=== PATIENT | male | born 1945 | race Caucasian/White ===

== ENCOUNTER 2016-12-23 18:58 | Inpatient (IN) ==
--- NOTE | 2016-12-23 19:46 | Diag Imaging Result Doc PS360 ---
EXAM: FLAT/UPRIGHT ABD/1 VIEW CHEST HISTORY: constipation TECHNIQUE: Flat and upright abdomen COMMENT: There are surgical clips in the right upper quadrant. There is gas and air-fluid levels in the colon. There is small bowel dilatation particularly in the left upper quadrant. This is worse than on 12/10/2015. There is no evidence of organomegaly or mass. CHEST: There is bibasilar atelectasis. Otherwise has been no significant change since 11/16/2014. IMPRESSION: Atelectasis. Partial small bowel obstruction. Electronically signed by Terry Wong 12/23/2016 7:43 PM
--- NOTE | 2016-12-23 20:01 | PROVIDER DOCUMENTATION ---
HPI-Abdominal Pain/GI Problem - General Chief Complaint: Constipation Stated Complaint: CONSTIPATED Time Seen by Provider: 12/23/16 19:30 Source: patient Allergies/Adverse Reactions: Patient Allergies Allergy/AdvReac Type Severity Reaction Status Date / Time No Known Allergies Allergy Verified 12/23/16 19:30 Home Medications: Home Medication List Medication Instructions Recorded Confirmed Last Taken Type Hydrochlorothiazide 12.5 mg PO DAILY 11/16/14 12/23/16 08/31/16 History PRAVAstatin [Pravachol] 40 mg PO QHS 11/16/14 12/23/16 08/31/16 History Warfarin [Coumadin] 10 mg PO QHS 11/16/14 12/23/16 08/31/16 History Tamsulosin [Flomax] 0.4 mg PO DAILY 12/10/15 12/23/16 08/31/16 History RAMIpril [Altace] 5 mg PO DAILY 12/26/15 12/23/16 08/31/16 History Warfarin [Coumadin] 11 mg PO QHS 12/26/15 12/23/16 08/29/16 History - History of Present Illness-ABD Nature of Presenting Problems: PT C/O CONSTIPATION AND ABD DISTENTION FOR 3-4 DAYS. STS PAIN HAS GOTTEN WORSE SINCE YESTERDAY. TODAY HE USED 2 FLEETS ENEMAS AND HAS HAD DIARRHEA, BUT NO SOLID STOOL. ALSO HAS N/V TODAY. HX OF DIVERTICULITIS AND MECHANICAL SBO, DISCUSSED SURGERY WITH DR. SOL BUT "ENDED UP NOT HAVING TO HAVE SURGERY". Abdominal Pain Onset Location: reports: LLQ, generalized abdomen Quality of Pain: reports: tightness Severity in ED: reports: moderate Onset/Duration: reports: 4 days ago Timing: reports: still present Associated Symptoms: reports: constipation, nausea, vomiting Last BM: 4 days ago Dark Stools Present?: reports: none noticed Rectal Bleeding: reports: none Rectal Pain: reports: none Emesis Description: reports: clear Bruising or Bleeding Gums?: No Similar Symptoms Previously?: Yes Recently seen or treated by another doctor?: No Review of Systems - Adult - REVIEW OF SYSTEMS - ADULT Constitutional: reports: no symptoms reported. denies: fever Eyes: reports: no symptoms reported Ears, Nose, Mouth & Throat: reports: no symptoms reported Cardiovascular: reports: no symptoms reported. denies: chest pain Respiratory: reports: no symptoms reported. denies: shortness of breath Gastrointestinal: reports: see HPI, abdominal pain, constipation, nausea, poor appetite, vomiting. denies: rectal bleeding Genitourinary: reports: no symptoms reported Musculoskeletal: reports: no symptoms reported Integumentary: reports: no symptoms reported Neurological: reports: no symptoms reported Psychiatric: reports: no symptoms reported Endocrine: reports: no symptoms reported Hematologic/Lymphatic: reports: no symptoms reported Allergic/Immunologic: reports: no symptoms reported All Other Systems: Reviewed and Negative Past History - Adult - PAST MEDICAL HISTORY-ADULT Review of Records: reports: Nursing Assessment Review, Medications Reviewed, Social history reviewed & non-contributory. Major Childhood Illnesses: reports: denies history Cardiovascular: reports: blood clots (dvt), HTN, hyperlipidemia Respiratory: reports: denies history Gastrointestinal: reports: GERD, obstruction Genitourinary: reports: other (BPH) Musculoskeletal: reports: denies history Neurological: reports: denies history Endocrine/Immune: reports: denies history Other Conditions: reports: denies history - PRIOR SURGERIES/PROCEDURES Surgical/Procedure History: reports: cholecystectomy - IMMUNIZATION STATUS Childhood Immunizations: See Nurse Assessment Flu Vaccine: See Nurse Assessment - FAMILY HISTORY Family History: reviewed, not pertinent Physical Exam-General - PHYSICAL EXAM-ADULT Initial Vital Signs Reviewed: Yes - CONSTITUTIONAL General Appearance: appears well, alert, no apparent distress - EYES Eyes: PERRL/EOMI - HEAD, EARS, NOSE, MOUTH & THROAT HENMT: moist mucous membranes - RESPIRATORY Respiratory: chest non-tender, lungs clear, normal breath sounds, no pleuratic chest pain, no respiratory distress, no accessory muscle use - CARDIOVASCULAR Cardiovascular: regular rate, rhythm - GASTROINTESTINAL (ABDOMEN) Abdominal Exam: no organomegaly, no pulsatile mass, distended (SEMIFIRM), tenderness (GENERALIZED, WORSE IN LLQ). negative: normal bowel sounds (VERY HYPO) - MUSCULOSKELETAL Back Exam: normal inspection, no CVA tenderness, no vertebral tenderness Extremity: normal range of motion, non-tender, normal gait, normal inspection - SKIN Integumentary: normal color, normal turgor, warm/dry - NEUROLOGIC Neurologic: grossly normal, no motor/sensory deficits - PSYCHIATRIC Psych/Mental Status: normal mood/affect, oriented x 3 Progress - PLAN OF CARE/RESULTS Progress/Plan/Lab Results: Vital Signs - 8 hr 12/23/16 19:13 Temperature 97.7 F Pulse Rate 102 H Respiratory Rate 18 Blood Pressure 125/85 O2 Sat by Pulse Oximetry 98 Orders Category Date Time Status FLAT/UPRIGHT ABD/1 VIEW CHEST [RAD] Stat Exams 12/23/16 19:19 Completed Result Diagrams: 12/23/16 20:29 12/23/16 20:29 - XRAY 1 XRAY Study: Abdomen Impression: Abnormal, See EMR Report XRAY Interpretation: PARTIAL SBO.-DR. WORTHY - CT/MRI 1 CT Study: Abdomen Impression: See EMR Report (diverticulitis. Illeus vs SBO.) - CHANGE OF SHIFT REPORT (ED Provider) Report Given and Care Transferred to:: [facility] Time of Transfer: 21:44 Items Pending: CT/MRI Results Departure - Departure Date of Disposition Decision: 12/23/16 Time of Disposition Decision: 22:50 DIAGNOSIS: Small bowel obstruction Diverticulitis Qualifiers: Diverticulitis site: large intestine Diverticulitis bleeding: without bleeding Diverticulitis complication: without perforation or abscess Qualified Code(s): K57.32 - Diverticulitis of large intestine without perforation or abscess without bleeding Disposition: ADMITTED INPATIENT 09 Certified Medical Emergency: Emergent Condition: Stable Referrals and Follow-Ups: Carlee Alvraez MD [Primary Care Provider] - - Critical Care Note This patient required my direct & personal management of CC.: No Attestation - Physician/ LENA Attestation Patient care was provided by Advanced Practice Provider:: Yes Advanced Practice Provider:: Martha Calhoun Advanced Practice Provider documentation review:: The Mid-level provider documentation, treatment plan and medical decision making was reviewed by the physician who agrees with all treatment and medical decision making by the MLP. - Physician/ LENA Attestation #3 Shift Change Time: 21:30 Patient care was provided by Advanced Practice Provider:: Yes Advanced Practice Provider:: Dejuan Marino
[2016-12-23] MEDS ORDERED: ZOFRAN ODT PO ONE (20:02)
[2016-12-23] MEDS ORDERED: NS 1,000 ML IV ONE (20:25)
[2016-12-23] MEDS ORDERED: ZOFRAN IV ONE (20:25)
[2016-12-23 20:49] LABS: URINE CULTURE NEEDED? NO; URINE SOURCE CLEAN CATCH
[2016-12-23 20:56] LABS: BILIRUBIN URINE NEGATIVE (NEGATIVE); BLOOD URINE MODERATE (NEGATIVE); COLOR YELLOW; GLUCOSE URINE NEGATIVE (NEGATIVE); LEUKOCYTES URINE NEGATIVE (NEGATIVE); NITRITE URINE NEGATIVE (NEGATIVE); PH URINE 5.5; PROTEIN URINE 100 mg/dL (NEGATIVE); TURBIDITY URINE CLEAR (CLEAR); URINE MICRO REVIEW NEEDED? YES; UROBILINOGEN URINE 2 mg/dL (NORMAL)
[2016-12-23 20:58] LABS: UR EPITHELIAL CELLS <10 /HPF (<10); URINE BACTERIA NEGATIVE /HPF; URINE RBC <10 /HPF (<10); URINE WBC <10 /HPF (<10)
[2016-12-23 20:58] LABS: BASO% 0.2 % (0.0-0.8); EOS# 0.03 X1000 (0.0-0.7); EOS% 0.2 % (0.0-10.0); HEMATOCRIT 44.3 % (42.0-52.0); HEMOGLOBIN 15.3 g/dL (14.0-18.0); IMM GRAN# 0.03 X1000 (0.0-0.04); IMM GRAN% 0.2 % (0.0-0.5); LYMPH# 0.47 X1000 (1.2-3.4); LYMPH% 3.2 % (20.5-51.1); MANUAL DIFF NEEDED? NO; MCH 31.2 PG (27-31); MCHC 34.5 g/dL (33-37); MCV 90.4 FL (81-99); MONO# 1.05 X1000 (0.11-0.59); MONO% 7.2 % (1.7-9.3); MPV 9.7 FL (7.4-10.4); PLT 195 X1000 (130-400)
[2016-12-23 21:06] LABS: URINE CASTS NONE SEEN; URINE CRYSTALS NONE SEEN; URINE SMALL ROUND CELLS NONE SEEN
[2016-12-23 21:10] LABS: ALBUMIN 4.4 g/dL (3.5-5.0); CALCIUM 10.4 mg/dL (8.8-10.2); POTASSIUM 3.8 mmol/L (3.5-5.1); TOTAL BILIRUBIN 1.92 mg/dL (0.20-1.00); TOTAL PROTEIN 8.1 g/dL (6.3-8.3)
--- NOTE | 2016-12-23 22:04 | Diag Imaging Result Doc PS360 ---
EXAM: ABDOMEN/PELVIS W/O CONTRAST HISTORY: EVALUATE SBO, POSS DIVERTICULITIS TECHNIQUE: CT urogram without contrast COMMENT: There is atelectasis versus fibrosis in the lung bases which is similar in appearance to the previous study of 12/26/2015. There is a cyst in the dome of the liver. There is a small pericardial effusion which is slightly larger than it was on the previous study. Anteriorly this measures slightly over 6 mm versus 4 mm previously. 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 This was demonstrated to better advantage on the previous noncontrast study of 12/26/2015. There is no evidence of nephrolithiasis or hydronephrosis. There is been cholecystectomy. There is no evidence of splenomegaly. There is no evidence of appendicitis. There are fluid-filled small bowel loops particularly in the left upper quadrant. The colon is not distended. There are numerous scattered colonic diverticula. There is considerable inflammatory change in the fat around the distal descending and proximal sigmoid colon. There is no definite abscess. These inflammatory changes were not present on the previous study. There are fluid contents in the colon distal to this. The regional skeleton is stable in appearance. There are numerous prominent and enlarged retroperitoneal nodes from the level of the renal pedicles caudally. One such node is present anterior to the aorta on image 67 measuring in excess of 22 mm. Previously the node measured to slightly less than 21 mm.There is fluid in the small bowel to the ileocecal valve although the caliber of the small bowel gradually decreases as the distal ileum is approached. IMPRESSION: Distal descending diverticulitis. Ileus versus partial small bowel obstruction. Electronically signed by Terry Wong 12/23/2016 10:01 PM
[2016-12-23] MEDS ORDERED: FLAGYL 500 MG/NS 500 MG/100 ML IVPB IV ONE (22:23)
[2016-12-23] MEDS ORDERED: LEVAQUIN 750 MG/D5W 750 MG/150 ML IVPB IV ONE (22:24)
[2016-12-23] MEDS ORDERED: ROCEPHIN 1 GM/NS 1 GM/50 ML IVPB IV ONE (22:26)
--- NOTE | 2016-12-24 01:03 | HISTORY AND PHYSICAL ---
Patient of Dr. Carlee Alvarez REASON FOR ADMISSION: Four day history of constipation and left lower quadrant pain. HISTORY OF PRESENT ILLNESS: Mr. Joe Lin 71-year-old man with history of factor V Leiden mutation with severe lower extremity DVTs 20 years ago. Also has a history of hypertension, BPH, hyperlipidemia. Comes in today complaining of a 4-day history of 3-4 days constipation with abdominal distention. He says he has been passing very small hard stools. His gave him a Fleet enema today and he developed intense left lower quadrant pain which was nonradiating or crampy. Prior to today been having some intermittent but less intense left lower quadrant cramping spells. When his pain exacerbated he decided to come to the ER to be evaluated. On arrival to the ER he felt profoundly nauseous and vomited a total of 4 times. He denied any coffee grounds or hematemesis. Eileen has also had 4 loose clear stools with no blood or melena. He says he has been given some medication for his pain and says his pain is much better now. He admits to having subjective fevers and chills but denies any genitourinary complaints. No cardiorespiratory complaints. No neurological or musculoskeletal complaints. No polyuria or polydipsia. No visual complaints. No specific aggravating or relieving factors regarding the patient's pain. REVIEW OF SYSTEMS: Twelve system review was done. Positive findings noted above. ALLERGIES: None. MEDICATIONS: Pravachol 40 mg at bedtime, he also taking ramipril 5 mg daily, hydrochlorothiazide 12.5 mg daily, Flomax 0.4 mg daily, Warfarin 11 mg on Friday and and 10 mg rest of the week at bedtime. SURGICAL HISTORY: Only noted for cholecystectomy. FAMILY HISTORY: Noted for colon cancer, kidney cancer and coronary artery disease. No diabetes. SOCIAL HISTORY: Lives with his . Does not smoke, drink or use illicit drugs. LAB WORK: Chemistry showed a creatinine of 1.5, BUN 20, glucose 154, white count 14,000, hemoglobin and hematocrit 15 and 44, platelets 195,000. X-ray suggestive of partial small bowel obstruction. CT scan done showed descending diverticulitis with ileus versus small bowel obstruction. EXAMINATION: VITAL SIGNS: Temperature is 97.7 degrees, heart rate 102, respiratory 18, blood pressure 125/85, 98% on room air.General: Pleasant elderly man who is not in acute distress. He is alert and oriented to person, place, and time with normal mood and affect. HEENT: Head is normocephalic and atraumatic. MICHAEL, EOMI. ENT exam is grossly normal. Neck: Supple. No JVD or carotid bruit. No thyromegaly. Chest: Clear to auscultation. Good air entry both lung simmons. Cardiovascular: First and second heart sounds heard. No gallops, murmurs, rubs. Rhythm is regular. Abdomen: Soft with tenderness confined to the left lower quadrant area but no rebound or guarding. Bowel sounds are hypoactive, no mass, megaly appreciated. Rectal: Deferred. Extremities: No edema, clubbing or cyanosis. Pulses distally in all extremities are symmetrical with good volume. Neurologic: Grossly intact. No focal deficits. Skin: Intact. No breakdown, lesions, erythema. Musculoskeletal: Exam is grossly normal. ASSESSMENT: At this time. 1. Diverticulitis. 2. Probable small-bowel ileus versus small-bowel obstruction. 3. Hypertension. 4. Dehydration. 5. Hyperlipidemia. 6. Factor IV Leiden mutation. 7. Benign prostatic hypertrophy. PLAN: At this time will start patient on empiric antibiotics. Repeat abdominal x-ray in later tomorrow to document resolution of ileus versus what I believe to be a transient or incomplete small-bowel obstruction. Will consult Dr. Hubbard to see patient on standby should the kin case what we believe to be a partial small bowel obstruction progresses to complete obstruction. Will resume blood pressure medications but withhold this if systolic blood pressures less than 150. Continue anticoagulation with warfarin, check PT/INR in a.m. and monitor dosing accordingly. Keep patient NPO until cleared by Dr. Hubbard or day team. Continue IV hydration and symptomatic control of antiemetics and analgesia. cc: Carlee Alvarez MD
[2016-12-24] MEDS ORDERED: ZOFRAN IV PRN (02:08)
[2016-12-24] MEDS ORDERED: TYLENOL PO PRN (02:08)
[2016-12-24] MEDS: NS 1,000 ML IV SCH ×3 (02:34→19:00)
[2016-12-24] MEDS: MORPHINE IV PRN ×2 (02:34→13:52)
[2016-12-24] MEDS: LEVAQUIN 750 MG/D5W 750 MG/150 ML IVPB IV SCH (02:34)
[2016-12-24 03:07] LABS: INR 2.72; PROTIME 30.5 Seconds (9.2-11.7)
[2016-12-24] MEDS: COUMADIN PO ONE ×2 (04:29→05:07)
[2016-12-24] MEDS: COUMADIN PO SCH ×5 (05:05→22:53)
[2016-12-24] MEDS: FLAGYL 500 MG/NS 500 MG/100 ML IVPB IV SCH ×4 (05:19→22:53)
--- NOTE | 2016-12-24 09:25 | CONSULTATION ---
DATE OF CONSULTATION: 12/24/2016 REQUESTING PHYSICIAN: Dr. Campos. REASON FOR CONSULTATION: Consult concerning diverticulitis. HISTORY OF PRESENT ILLNESS: A 71-year-old, male with a history of Factor V Leiden mutation, presenting with a 4-day history of left lower quadrant pain. He does report also constipation. He said he has been passing very hard small stools. He did give himself an enema and he developed this intense pain in the left lower quadrant. He was seen in emergency department and found to have diverticulitis and likely an ileus like pattern. He was admitted by the hospitalist service and started on antibiotics. He reports that he is feeling better this morning since he was started on antibiotics. Overall, he is doing better. His CT scan did not show an abscess or perforation. He said that he is due for his next colonoscopy but has had previous colonoscopies and no episodes of cancer. He has had a previous episode of diverticulitis treated last year. PAST MEDICAL HISTORY: Factor V Leiden, hypertension, BPH. PAST SURGICAL HISTORY: Includes cholecystectomy. MEDICATIONS: Pravachol, ramipril, hydrochlorothiazide, Flomax, and warfarin. ALLERGIES: None. SOCIAL HISTORY: Denies alcohol, tobacco, or illicit drugs. FAMILY HISTORY: Negative for colon cancer. REVIEW OF SYSTEMS: A full 10 point review of systems was obtained and negative except as specified in the HPI. PHYSICAL EXAMINATION: Vital Signs: Patient is currently afebrile. His vital signs are stable. General Examination: No acute distress. Resting comfortably in bed. male, looks stated age. HEENT: Normocephalic, atraumatic. Pupils equal, round, react to light. Mucous membranes moist. Oropharynx benign. Neck: Supple. Trachea midline. Cardiovascular: Regular rate and rhythm. Lungs: Grossly clear. Abdomen: Soft. Some tenderness to the left lower quadrant. Peritonitis on exam. He does have a small, reducible hernia at his subxiphoid trocar site. Extremities: Moves all extremities. Neurologic: Grossly intact. Skin: No signs of jaundice. Vascular: All extremities perfused. LABORATORY: From last night, white blood cell count is 14, hematocrit is 44, platelet count is 195,000. INR is 2.72. Remainder of labs reviewed. CT scan independently reviewed and radiology report reviewed. Patient does have what appears to be diverticulitis with probably ileus with associated small bowel. ASSESSMENT AND PLAN: A 71-year-old, male with Factor V Leiden and other medical conditions, presenting now with an ileus secondary to diverticulitis. 1. Factor V Leiden. At this time, patient is on Coumadin. We will continue for right now. His INR is therapeutic. 2. Multiple medical comorbidities, currently being managed by the hospitalist service. 3. Diverticulitis. At this time, I think it is contributing through a local inflammatory response, presenting for his ileus. At this time, he is on appropriate antibiotics. I recommend continuing the antibiotics as prescribed by the hospitalist service. Given the fact this patient has had 2 episodes in at least a year for diverticulitis, we may need to consider an elective basis sigmoid resection. He is high risk with his Factor V Leiden but we could transition him over to subcutaneous Lovenox if need be. These can all be discussions that we would have a later date when he sees me in the outpatient setting. For right now, I will continue to see him while he is in the hospital. I appreciate the consult. cc: Jonathan Palafox MD
[2016-12-24] MEDS: FLOMAX PO SCH (11:08)
[2016-12-24] MEDS: ALTACE PO SCH (11:09)
--- NOTE | 2016-12-24 14:21 | Diag Imaging Result Doc PS360 ---
ABDOMEN FLAT/UPRIGHT - 12/24/2016 INDICATION: possible ileus TECHNIQUE: Two views COMPARISON: 12/23/2016 FINDINGS: There is improvement in the multiple dilated loops of small bowel. There is a lot more colon gas now. No free air. There are still some questionably dilated small bowel loops centrally. IMPRESSION: Improvement in the abnormally gas dilated loops of small bowel. There is more colon gas now. Electronically signed by Wiliam Bethea 12/24/2016 2:18 PM
--- NOTE | 2016-12-24 16:00 | PROGRESS NOTE ---
DATE: 12/24/2016 SUBJECTIVE: Today Mr. Lin refers to be doing a lot better. Abdominal pain is improving. He has not had any bowel movement. OBJECTIVE: Vital signs: Blood pressure is 121/67, pulse of 57, respirations 16, temperature is 97.6 degrees. General Examination: Mr. Lin is a 71-year-old, very friendly, male. He is in bed. He does not seem to be in any distress. HEENT: Mucosa is pink and moist. Anicteric. Acyanotic. Neck: Supple. Chest: Good air entry bilaterally. No crepitations. Abdomen: Soft. Mildly tender to the left lower quadrant but there is no rebound tenderness. Central Nervous System: Patient is awake, alert and oriented x4. There is no focal neurological deficit. LABORATORY DATA: WBC is 14.61, hemoglobin is 15.3, platelet count of 195,000. Chemistry is reviewed and is unremarkable except for creatinine of 1.5. A CT scan of the abdomen which was done on presentation showed distal descending diverticulitis, ileus versus partial small bowel obstruction. ASSESSMENT: 1. Abdominal pain secondary to descending colon diverticulitis. 2. Ileus versus partial small bowel obstruction. 3. Constipation with overflow incontinence. 4. Hypertension. 5. History of Factor V Leiden mutation. 6. Benign prostatic hypertrophy. 7. Acute kidney injury. We will continue with adequate hydration. PLAN: Mr. Lin seems to be slightly improved. We will continue with IV fluids. He has been already started on clear liquids by the surgical team. We will continue to follow up. We will repeat his KUB tomorrow morning to follow up on the gas distribution. cc: Wil Campos MD
[2016-12-24] MEDS: PRAVACHOL PO SCH (22:53)
[2016-12-25] MEDS: FLAGYL 500 MG/NS 500 MG/100 ML IVPB IV SCH ×4 (01:51→22:20)
[2016-12-25] MEDS: NS 1,000 ML IV SCH (01:51)
[2016-12-25] MEDS: LEVAQUIN 750 MG/D5W 750 MG/150 ML IVPB IV SCH (04:55)
[2016-12-25 06:04] LABS: MANUAL DIFF NEEDED? NO
--- NOTE | 2016-12-25 06:24 | PROGRESS NOTE ---
DATE: 12/25/2016 SUBJECTIVE: The patient is doing better. Reports less pain. OBJECTIVE: Vital Signs: Patient is currently afebrile. His vital signs are stable. General: No acute distress. HEENT: Normocephalic, atraumatic. Pupils equal, round, and react to light. Mucous membranes moist. Oropharynx benign. Neck: Supple. Trachea midline. Cardiovascular: Regular rate and rhythm. Lungs: Grossly clear. Abdomen: Soft, minimally tender to palpation in the left lower quadrant, but improved from yesterday. No peritoneal signs. Extremities: Moves all extremities. Neurologic: Grossly intact. Skin: No signs of jaundice. Vascular: All extremities perfused. LABORATORY STUDIES: Currently pending this morning. ASSESSMENT AND PLAN: A 71-year-old male with Factor V Leiden and other medical conditions, now presenting with diverticulitis. 1. Factor V Leiden. At this time, patient is on Coumadin. Will continue to monitor. 2. Multiple medical comorbidities currently being managed by the hospitalist service. 3. Diverticulitis. At this time, I think he is clinically improving. We will need to continue with his antibiotics. I have advanced him to a full liquid diet. We will see how he does. cc: Jonathan Palafox MD
[2016-12-25 06:30] LABS: BASO% 0.2 % (0.0-0.8); EOS# 0.27 X1000 (0.0-0.7); EOS% 4.1 % (0.0-10.0); HEMATOCRIT 37.3 % (42.0-52.0); HEMOGLOBIN 12.5 g/dL (14.0-18.0); LYMPH# 0.52 X1000 (1.2-3.4); MCH 30.9 PG (27-31); MCHC 33.5 g/dL (33-37); MCV 92.3 FL (81-99); MONO# 0.64 X1000 (0.11-0.59); MONO% 9.8 % (1.7-9.3); MPV 9.6 FL (7.4-10.4); NEUT% 77.9 % (42.2-75.2); PLT 183 X1000 (130-400); RBC 4.04 XMIL (4.7-6.1)
[2016-12-25 06:44] LABS: AGAP 8; ALBUMIN 3.3 g/dL (3.5-5.0); ALKALINE PHOSPHATASE 76 U/L (32-122); BUN 11 mg/dL (8-22); CALCIUM 8.6 mg/dL (8.8-10.2); CHLORIDE 103 mmol/L (98-107); COSMO 279; GOT 54 U/L (10-34); GPT 42 U/L (10-44); MAGNESIUM 2.1 mg/dL (1.5-2.7); POTASSIUM 3.9 mmol/L (3.5-5.1); SODIUM 140 mmol/L (136-145); TCO2 29 mmol/L (25-35); TOTAL BILIRUBIN 0.68 mg/dL (0.20-1.00); TOTAL PROTEIN 5.9 g/dL (6.3-8.3)
[2016-12-25 06:53] LABS: INR 3.5; PROTIME 39.8 Seconds (9.2-11.7)
[2016-12-25] MEDS: FLOMAX PO SCH (10:45)
[2016-12-25] MEDS: ALTACE PO SCH (10:45)
--- NOTE | 2016-12-25 15:48 | PROGRESS NOTE ---
DATE: 12/25/2016 SUBJECTIVE: Today Mr. Lin referred to be doing a lot better. Abdominal pain has substantially improved. No vomiting. The patient has had a bowel movement. OBJECTIVE: Vital signs: Blood pressure is 168/89, pulse of 97, respirations 16, temperature is 98.2 degrees. General: Mr. Lin is a 71-year-old male. He is in bed, in no distress. HEENT: Mucosa is pink and moist. Anicteric. Acyanotic. Neck: Supple. Chest: Clear. Cardiovascular: Regular rate and rhythm. Abdomen: Soft, minimally tender in the right lower quadrant. Bowel sounds are present. PHARMACY TECHNOLOGY INSTRUCTOR: Patient is awake and alert and oriented x4. There is no focal neurological deficit. LABORATORY DATA: WBC is 6.51, hemoglobin is 12.5, platelet count of 183,000. Chemistry is reviewed, completely unremarkable. ASSESSMENT: 1. Abdominal pain secondary to descending colon diverticulitis. The patient is on levofloxacin and metronidazole. Seems to be doing a lot better. Today is day 1 of antibiotics. We plan to treat this for a total of 14 days, after which patient will be advised to follow up with Gastroenterology for possible endoscopy. Patient says he is going to be following up with Dr. Hankins. 2. Ileus versus partial small bowel obstruction. Improving. Patient has had a bowel movement and abdominal pain is less than before. We are going to advance his diet to GI soft, encourage the patient to walk around more. Hopefully tomorrow we will be able to discharge him. 3. Constipation with overflow incontinence noted. 4. Hypertension. 5. History of factor V Leiden mutation. Patient is currently on Coumadin. 6. Benign prostatic hypertrophy. 7. Acute kidney injury, resolved. PLAN: In general, I think Mr. Lin is doing a lot better. We will advance his diet today. Hopefully tomorrow we should be able to discharge him if he continues to show improvement. cc: Wil Campos MD
[2016-12-25] MEDS: PRAVACHOL PO SCH (20:26)
[2016-12-25] MEDS: COUMADIN PO SCH (20:27)
[2016-12-26] MEDS: LEVAQUIN 750 MG/D5W 750 MG/150 ML IVPB IV SCH (05:07)
[2016-12-26] MEDS: FLAGYL 500 MG/NS 500 MG/100 ML IVPB IV SCH (06:41)
--- NOTE | 2016-12-26 07:00 | PROGRESS NOTE ---
DATE: 12/26/2016 SUBJECTIVE: Patient doing better. He has had a bowel movement, tolerating a regular diet. OBJECTIVE: Vital Signs: The patient is currently afebrile. His vital signs have been stable. General: No acute distress. HEENT: Normocephalic atraumatic. Pupils equal, round, reactive to light. Mucous membranes moist. Oropharynx benign. Neck: Supple. Trachea midline. Cardiovascular: Regular rate and rhythm. Lungs: Grossly clear. Abdomen: Soft, very minimally tender to palpation in the left lower quadrant, but improved from yesterday. No peritoneal signs. Extremities: Moves all extremities. Neurologic: Grossly intact. Skin: No signs of jaundice. Vascular: All extremities perfused. LABORATORY DATA: Reviewed labs from yesterday. His white blood cell count yesterday was 6, which is down from 14. ASSESSMENT AND PLAN: A 71-year-old male with factor V Leiden and other medical comorbidities, now presenting with diverticulitis. 1. Factor V Leiden. At this time, the patient is on Coumadin. Will continue to monitor. 2. Multiple medical comorbidities, currently being managed by the Hospitalist Service. 3. Diverticulitis. At this time, I think he is clinically improving. He can likely be discharged home today or tomorrow on oral antibiotics. I would like to see him in the office in 1 to 2 weeks. cc: Jonathan Palafox MD
[2016-12-26 07:44] VITALS: BP 152/82
[2016-12-26] MEDS: ALTACE PO SCH (09:09)
[2016-12-26] MEDS: FLOMAX PO SCH (09:09)
--- NOTE | 2016-12-26 10:13 | Diag Imaging Result Doc PS360 ---
EXAM: KUB ABDOMEN HISTORY: sbo TECHNIQUE: Supine, two views COMPARISON: 12/24/2016 FINDINGS: There are surgical clips in the right upper quadrant from a cholecystectomy. The bowel loops are not dilated. No organomegaly. No abnormal abdominal or pelvic calcifications. IMPRESSION: No small bowel obstruction. Electronically signed by Zeferino Pichardo 12/26/2016 10:11 AM
[2016-12-26] MEDS ORDERED: FLAGYL PO SCH (13:00)
--- NOTE | 2016-12-26 18:03 | DISCHARGE SUMMARY ---
ADMISSION DATE: 12/24/2016 DISCHARGE DATE: 12/26/2016 CONSULTATIONS: Jonathan Palafox MD with General Surgery. PERTINENT PROCEDURES: 1. Abdomen and pelvis CT showed distal descending diverticulitis, ileus versus partial small bowel obstruction. 2. Abdominal x-ray showed improvement with normal gas, dilated loops of small bowel, there is more colon gas now. 3. Final abdominal x-ray showed no small-bowel obstruction. DISCHARGE DIAGNOSES: 1. Abdominal pain secondary to descending colon diverticulitis. The patient will continue p.o. antibiotics and follow up with GI for possible colonoscopy with Dr. Hankins. 2. Ileus versus partial small bowel obstruction has improved. Followed by General Surgery. 3. Constipation with overload incontinence noted. 4. Hypertension stable. 5. History of Factor V Leiden mutation. Patient is currently on Coumadin. 6. Benign prostatic hypertrophy. 7. Acute kidney injury resolved. HOSPITAL COURSE: Mr. Lin is a 71-year-old gentleman with history of Factor V Leiden mutation with severe lower extremity DVT 20 years ago, history of hypertension, BPH, hyperlipidemia who came to the ED with a 3-4 day history of constipation with abdominal distention. He had been passing very small hard stools. His gave him a Fleet enema. He developed intense left lower quadrant pain which was nonradiating and crampy. Prior to the day of his admission he has been having some intermittent but less intense left lower quadrant cramping spells. When the pain exacerbated he came to the ED. On arrival he felt profoundly nauseated and vomited 4 times. He denied any coffee-ground emesis or hematemesis. He also had 4 loose clear stools. No blood or melena. He had been given pain medications in the ED which relieved his pain. He did have some subjective fevers and chills. CT scan in the ED showed distending diverticulitis with ileus versus small-bowel obstruction. He was started on empiric antibiotics, repeat serial abdominal x- rays as well as a consult by General Surgery. Keep him NPO until cleared by General Surgery. Continue IV hydration, symptomatic control of pain, nausea and vomiting with antiemetics and analgesia. He was also continued on his Coumadin for his Factor V Leiden mutation. Dr. Palafox felt given the fact that the patient has had 2 episodes diverticulitis in the last year that he may need to consider an elective sigmoid resection. He is high risk with his Factor V Leiden but could easily be transitioned over to subcutaneous Lovenox if need be. That could all be discussed at a later date in an outpatient setting. He continued to follow him throughout his hospital stay. The patient continued to get serial abdominal x-rays. Clinically he slowly improved. He was initiated on clear liquids, advanced to a full liquid diet, and then to a regular diet that he tolerated. He is having bowel movements. He is going to be discharged today on p.o. antibiotics and Dr. Palafox would like to see him back in his office in 1-2 weeks. VITAL SIGNS OF DISCHARGE: Temperature is 98.1 degrees, heart rate 54, respirations 20, blood pressure 152/82, O2 is 99% on room air. DISCHARGE DIET: GI soft. DISCHARGE MEDICATIONS: 1. Hydrochlorothiazide 12.5 mg p.o. daily. 2. Levaquin 500 mg p.o. daily. 3. Flagyl 250 mg p.o. q.8 hours. 4. Pravachol 40 mg p.o. at bedtime. 5. Altace 5 mg p.o. daily. 6. Flomax 0.4 mg p.o. daily. 7. Coumadin 10 mg p.o. at bedtime. 8. Warfarin 11 mg p.o. at bedtime. FOLLOWUP: Mr. Lin is being discharged home. He can follow up with Dr. Jonathan Palafox on 01/08/2017 at 1:15 as well as his primary care physician, Dr. Carlee Alvarez. He can return to the ED for any worsening of symptoms. Dictated by BUD Ness for Wil Campos MD cc: MD Carlee Banegas MD
[2016-12-27] MEDS ORDERED: LEVAQUIN PO SCH (09:00)
== END 2016-12-26 14:24 | disposition home or self-care (01) ==
LOC: ED 18:58 → 4N 12-24 01:51 → SUATTDRO 12-24 01:51
PROVIDERS: ATTEND Internal Medicine

== ENCOUNTER 2019-04-28 16:26 | Inpatient (IN) ==
--- NOTE | 2019-04-28 16:49 | EKG Report ---
Test Performed on : 04/28/2019 4:34:40 PM Test Reason : sob Blood Pressure : / mmHG Vent. Rate : 056 BPM Atrial Rate : 056 BPM P-R Int : 162 ms QRS Dur : 106 ms QT Int : 398 ms P-R-T Axes : 039 -45 036 degrees QTc Int : 384 ms Sinus bradycardia. Left anterior fascicular block Abnormal ECG When compared with ECG of 28-MAR-2017 12:51, No significant change was found Unconfirmed Result
[2019-04-28 17:11] LABS: BASO# 0.03 X1000 (0.0-0.2); BASO% 0.6 % (0.0-0.8); EOS# 0.24 X1000 (0.0-0.7); EOS% 4.8 % (0.0-10.0); HEMATOCRIT 41.4 % (42.0-52.0); HEMOGLOBIN 13.7 g/dL (14.0-18.0); LYMPH# 0.85 X1000 (1.2-3.4); MCH 30.8 PG (27-31); MCHC 33.1 g/dL (33-37); MONO# 0.54 X1000 (0.11-0.59); MONO% 10.8 % (1.7-9.3); MPV 9.4 FL (7.4-10.4); NEUT# 3.34 X1000 (1.4-6.5); NEUT% 66.8 % (42.2-75.2); PLT 197 X1000 (130-400); RBC 4.45 XMIL (4.7-6.1)
--- NOTE | 2019-04-28 17:18 | Diag Imaging Result Doc PS360 ---
EXAM: CHEST-2 VIEWS HISTORY: SOB TECHNIQUE: Two views COMPARISON: 03/28/2017 FINDINGS: The lungs are hyperexpanded. The heart is not enlarged. The vessels are not distended. There are no infiltrates. No pleural effusions. IMPRESSION: Emphysema Electronically signed by Zeferino Pichardo 04/28/2019 5:15 PM
[2019-04-28 17:21] LABS: INR 2.99; PTT 37.9 Seconds (22.3-41.8)
[2019-04-28 17:46] LABS: ALB/GLOB RATIO 1.9; ALBUMIN 4.3 g/dL (3.5-5.0); CALCIUM 9.7 mg/dL (8.8-10.2); CREATININE 1.4 mg/dL (0.7-1.2); TOTAL BILIRUBIN 0.61 mg/dL (0.20-1.00); TOTAL PROTEIN 6.6 g/dL (6.3-8.3)
[2019-04-28 19:05] LABS: URINE SOURCE CLEAN CATCH
[2019-04-28 19:10] LABS: BILIRUBIN URINE NEGATIVE (NEGATIVE); BLOOD URINE TRACE (NEGATIVE); COLOR YELLOW; GLUCOSE URINE NEGATIVE (NEGATIVE); KETONE URINE NEGATIVE (NEGATIVE); LEUKOCYTES URINE NEGATIVE (NEGATIVE); NITRITE URINE NEGATIVE (NEGATIVE); PROTEIN URINE NEGATIVE (NEGATIVE); SP GRAVITY URINE 1.015; TURBIDITY URINE CLEAR (CLEAR); UR EPITHELIAL CELLS <10 /HPF (<10); URINE BACTERIA NEGATIVE /HPF; URINE RBC <10 /HPF (<10); URINE WBC <10 /HPF (<10); UROBILINOGEN URINE NORMAL (NORMAL)
--- NOTE | 2019-04-28 19:54 | PROVIDER DOCUMENTATION ---
This chart was entered by Eva Foss Scribe, acting as scribe for Jamie Toney CRNP. HPI-Cardiac General - General Chief Complaint: Shortness of Breath Stated Complaint: HIGH BP,HEART BURN Time Seen by Provider: 04/28/19 18:34 Allergies/Adverse Reactions: Patient Allergies Allergy/AdvReac Type Severity Reaction Status Date / Time No Known Allergies Allergy Verified 04/28/19 17:52 Home Medications: Home Medication List Medication Instructions Recorded Confirmed Last Taken Type Hydrochlorothiazide 12.5 mg PO DAILY 11/16/14 04/28/19 04/28/19 History PRAVAstatin [Pravachol] 40 mg PO QHS 11/16/14 04/28/19 04/27/19 History Warfarin [Coumadin] 10 mg PO QHS 11/16/14 04/28/19 04/27/19 History Tamsulosin [Flomax] 0.4 mg PO DAILY 12/10/15 04/28/19 04/27/19 History RAMIpril [Altace] 5 mg PO DAILY 12/26/15 04/28/19 04/28/19 History 15 Famotidine 20 mg PO DAILY 08/19/17 04/28/19 04/27/19 History Metoprolol Succinate E.r. [Toprol 25 mg PO DAILY 08/19/17 04/28/19 04/28/19 History Xl] Pantoprazole [Protonix] 40 mg PO DAILY@0700 08/19/17 04/28/19 04/28/19 History - History of Present Illness-Cardiac Nature of Presenting Problem: pt is a 73 yom c/o HTN elevated, started trending up earlier in week, a lot of indigestion, mild back pain, rt rib pain "feels like has had broke rub," increased sob. hx of gerd and factor 5 def. rx coumadin. 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 Review of Systems - Adult - REVIEW OF SYSTEMS - ADULT Constitutional: reports: no symptoms reported. denies: fever, fatique, night sweats Eyes: reports: no symptoms reported Ears, Nose, Mouth & Throat: reports: no symptoms reported Cardiovascular: reports: see HPI, other (HTN elv). denies: irregular heart rate, orthopnea, palpitations Respiratory: reports: see HPI, shortness of breath. denies: excessive sputum production, hemoptysis, wheezing Gastrointestinal: reports: see HPI, frequent heartburn. denies: abdominal pain, diarrhea, nausea, vomiting Genitourinary: reports: no symptoms reported Musculoskeletal: reports: see HPI, bone pain (rt rib pain), back pain (mild). denies: muscle aches, muscle weakness, neck pain Integumentary: reports: no symptoms reported Neurological: reports: no symptoms reported Psychiatric: reports: no symptoms reported Endocrine: reports: no symptoms reported Hematologic/Lymphatic: reports: no symptoms reported Allergic/Immunologic: reports: no symptoms reported All Other Systems: Reviewed and Negative Past History - Adult - PAST MEDICAL HISTORY-ADULT Review of Records: reports: Nursing Assessment Review, Medications Reviewed, Social history reviewed & non-contributory. Major Childhood Illnesses: reports: denies history Cardiovascular: reports: blood clots (dvt), HTN, hyperlipidemia Respiratory: reports: denies history Gastrointestinal: reports: GERD, obstruction Obstetrical/Gynecological: reports: denies history Genitourinary: reports: other (BPH) Musculoskeletal: reports: denies history Neurological: reports: denies history Endocrine/Immune: reports: denies history Other Conditions: reports: other (factor 5) - PRIOR SURGERIES/PROCEDURES Surgical/Procedure History: reports: cholecystectomy, hernia repair, other - IMMUNIZATION STATUS Childhood Immunizations: See Nurse Assessment Flu Vaccine: See Nurse Assessment - FAMILY HISTORY Family History: reviewed, not pertinent - SOCIAL HISTORY Smoking: other (former) Substance Use: none/never Physical Exam-General - PHYSICAL EXAM-ADULT Initial Vital Signs Reviewed: Yes - CONSTITUTIONAL General Appearance: appears well, alert, no apparent distress - EYES Eyes: PERRL/EOMI, pink conjunctivae - HEAD, EARS, NOSE, MOUTH & THROAT HENMT: normocephalic/atraumatic, moist mucous membranes, normal ENT inspection - NECK Neck: non-tender, full range of motion, supple, normal inspection - RESPIRATORY Respiratory: lungs clear, normal breath sounds, no pleuratic chest pain, no respiratory distress, no accessory muscle use, other (rt paraspinal tenderness to palp). negative: chest non-tender, accessory muscle use, rhonchi, stridor, wheezing, increased rate - CARDIOVASCULAR Cardiovascular: normal peripheral pulses, regular rate, rhythm, no edema, no gallop, no JVD, no murmur. negative: JVD, bradycardia, tachycardia - CHEST (BREASTS) Chest/Breast: tenderness (rt paraspinal to palp). negative: no tenderness - GASTROINTESTINAL (ABDOMEN) Abdominal Exam: normal bowel sounds, non tender, soft - MUSCULOSKELETAL Back Exam: normal inspection Extremity: normal range of motion, non-tender, normal inspection Peripheral Pulses: radial (R): 2+, radial (L): 2+ - SKIN Integumentary: normal color, normal turgor, warm/dry - NEUROLOGIC Neurologic: grossly normal, no motor/sensory deficits - PSYCHIATRIC Psych/Mental Status: normal mood/affect, normal thought content, normal thought process, oriented x 3 Progress - PLAN OF CARE/RESULTS Progress/Plan/Lab Results: Vital Signs - 8 hr 04/28/19 16:36 Temperature 98.4 F Pulse Rate 63 Respiratory Rate 18 Blood Pressure 194/106 O2 Sat by Pulse Oximetry 97 Laboratory Results - last 24 hr 04/28/19 04/28/19 04/28/19 16:53 16:53 16:53 WBC 5.00 RBC 4.45 L Hgb 13.7 L Hct 41.4 L MCV 93.0 MCH 30.8 MCHC 33.1 RDW Std Deviation 13.0 Plt Count 197 MPV 9.4 Immature Gran % (Auto) 0.0 Neut % (Auto) 66.8 Lymph % (Auto) 17.0 L [place] % (Auto) 10.8 H Eos % (Auto) 4.8 Baso % (Auto) 0.6 Immature Gran # (Auto) 0.00 Neut # (Auto) 3.34 Lymph # (Auto) 0.85 L [place] # (Auto) 0.54 Eos # (Auto) 0.24 Baso # (Auto) 0.03 PT INR PTT (Actin FS) D-Dimer, Quantitative Sodium 138 Potassium 4.0 Chloride 97 L Carbon Dioxide 29 Anion Gap 12 BUN 18 Creatinine 1.4 H Estimated GFR/1.73 m2 49 BUN/Creatinine Ratio 13 Glucose 108 H Calculated Osmolality 278 Calcium 9.7 Total Bilirubin 0.61 AST 17 ALT 13 Alkaline Phosphatase 55 Creatine Kinase 50 Troponin T Dji-L-Zvxgygfmcxz Pept 175 Total Protein 6.6 Albumin 4.3 Globulin 2.3 Albumin/Globulin Ratio 1.9 Urine Source Urine Color Urine Turbidity Urine pH Ur Specific [place] Urine Protein Ur Glucose (Stick) Ur Ketones (Stick) Urine Blood Urine Nitrite Urine Bilirubin Urobilinogen Dipstick Urine Leukocytes Urine WBC (Auto) Urine RBC (Auto) U Epithel Cells (Auto) Urine Bacteria (Auto) 04/28/19 04/28/19 04/28/19 16:53 16:53 16:53 WBC RBC Hgb Hct MCV MCH MCHC RDW Std Deviation Plt Count MPV Immature Gran % (Auto) Neut % (Auto) Lymph % (Auto) [place] % (Auto) Eos % (Auto) Baso % (Auto) Immature Gran # (Auto) Neut # (Auto) Lymph # (Auto) [place] # (Auto) Eos # (Auto) Baso # (Auto) PT 32.0 H INR 2.99 PTT (Actin FS) 37.9 D-Dimer, Quantitative < 0.27 Sodium Potassium Chloride Carbon Dioxide Anion Gap BUN Creatinine Estimated GFR/1.73 m2 BUN/Creatinine Ratio Glucose Calculated Osmolality Calcium Total Bilirubin AST ALT Alkaline Phosphatase Creatine Kinase Troponin T < 0.010 Hdf-S-Tbnzllfhahz Pept Total Protein Albumin Globulin Albumin/Globulin Ratio Urine Source Urine Color Urine Turbidity Urine pH Ur Specific [place] Urine Protein Ur Glucose (Stick) Ur Ketones (Stick) Urine Blood Urine Nitrite Urine Bilirubin Urobilinogen Dipstick Urine Leukocytes Urine WBC (Auto) Urine RBC (Auto) U Epithel Cells (Auto) Urine Bacteria (Auto) 04/28/19 18:59 WBC RBC Hgb Hct MCV MCH MCHC RDW Std Deviation Plt Count MPV Immature Gran % (Auto) Neut % (Auto) Lymph % (Auto) [place] % (Auto) Eos % (Auto) Baso % (Auto) Immature Gran # (Auto) Neut # (Auto) Lymph # (Auto) [place] # (Auto) Eos # (Auto) Baso # (Auto) PT INR PTT (Actin FS) D-Dimer, Quantitative Sodium Potassium Chloride Carbon Dioxide Anion Gap BUN Creatinine Estimated GFR/1.73 m2 BUN/Creatinine Ratio Glucose Calculated Osmolality Calcium Total Bilirubin AST ALT Alkaline Phosphatase Creatine Kinase Troponin T Nkv-U-Ywhjfakkehv Pept Total Protein Albumin Globulin Albumin/Globulin Ratio Urine Source CLEAN CATCH Urine Color YELLOW Urine Turbidity CLEAR Urine pH 7.0 Ur Specific [place] 1.015 Urine Protein NEGATIVE Ur Glucose (Stick) NEGATIVE Ur Ketones (Stick) NEGATIVE Urine Blood TRACE A Urine Nitrite NEGATIVE Urine Bilirubin NEGATIVE Urobilinogen Dipstick NORMAL Urine Leukocytes NEGATIVE Urine WBC (Auto) <10 Urine RBC (Auto) <10 U Epithel Cells (Auto) <10 Urine Bacteria (Auto) NEGATIVE Orders Category Date Time Status Cardiac Monitoring DIRECTED Care 04/28/19 16:45 Active Oxygen Therapy- ED Nursing DIRECTED Care 04/28/19 16:45 Active Saline Loc NOW Care 04/28/19 16:45 Active CHEST-2 VIEWS [RAD] Stat Exams 04/28/19 16:45 Completed CBC WITH ELECTRONIC DIFF [HEME] Stat Lab 04/28/19 16:53 Completed CK PROFILE [SP CHEM] Stat Lab 04/28/19 16:53 Completed COMPREHENSIVE METABOLIC PANEL [CHEM] Stat Lab 04/28/19 16:53 Completed D-DIMER [COAG] Stat Lab 04/28/19 16:53 Completed PRO B-NATRIURETIC PEPTIDE Stat Lab 04/28/19 16:53 Completed PROTIME WITH INR [COAG] Stat Lab 04/28/19 16:53 Completed PTT [COAG] Stat Lab 04/28/19 16:53 Completed TROPONIN T Stat Lab 04/28/19 16:53 Completed UA NIMS W/REFLEX CULT [URINALYSIS] Stat Lab 04/28/19 18:59 Completed CP/SOB/Palp >45 yrs of Age Stat Oth 04/28/19 16:44 Ordered EKG [EKG] Stat Ther 04/28/19 16:45 Draft Result Diagrams: 04/28/19 16:53 04/28/19 16:53 - EKG 1 Time of EKG reading by physician:: 16:39 EKG Read and Signed by:: David Mcclelland EKG Interpretation (*Must complete 3 of following elements*): Abnormal Rate: 56 (left juanito block) Rhythm: SB [place]: normal QRS: normal [place] Interval: normal ST Wave: normal - XRAY 1 XRAY Study: Chest Impression: See EMR Report ( EXAM: CHEST-2 VIEWS HISTORY: SOB TECHNIQUE: Two views COMPARISON: 03/28/2017 FINDINGS: The lungs are hyperexpanded. The heart is not enlarged. The vessels are not distended. There are no infiltrates. No pleural effusions. IMPRESSION: Emphysema Electronically signed by Zeferino Pichardo 04/28/2019 5:15 PM) - CONSULTS/PCP/HOSPITALIST Notification #1 *Consult/PCP/Hospitalist*: Dr cárdenas Time Discussed: 19:53 Reason/Comments: SOB, CP Consult Disposition: Admit Departure - Departure Date of Disposition Decision: 04/28/19 Time of Disposition Decision: 19:53 DIAGNOSIS: SOB (shortness of breath) Chest pain Qualifiers: Chest pain type: unspecified Qualified Code(s): R07.9 - Chest pain, unspecified Hypertension Qualifiers: Hypertension type: unspecified Qualified Code(s): I10 - Essential (primary) hypertension Disposition: ADMITTED INPATIENT 09 Certified Medical Emergency: Emergent Condition: Critical Referrals and Follow-Ups: Carlee Alvarez MD [Primary Care Provider] - - Critical Care Note This patient required my direct & personal management of CC.: No Attestation - Physician/ LENA Attestation Patient care was provided by Advanced Practice Provider:: Yes Advanced Practice Provider:: Jamie Toney Advanced Practice Provider documentation review:: The Mid-level provider documentation, treatment plan and medical decision making was reviewed by the physician who agrees with all treatment and medical decision making by the MLP. The physician spent face to face time with patient:: No Advanced Practice Provider documentation review:: Supervising physician onsite and consulted in the evaluation and care of this patient. The physician did not have a face to face encounter with the patient. This chart was documented by the indicated scribe, (Eva Foss Scribe) and accurately reflects the services I performed and decisions made by me, Jamie Toney CRNP, as attested by the provider's signature.
[2019-04-29] MEDS ORDERED: DUONEB (A & A) INH PRN (00:52)
[2019-04-29] MEDS ORDERED: LABETALOL IV PRN (00:55)
[2019-04-29] MEDS: SOLU-MEDROL IV SCH ×3 (01:52→17:03)
[2019-04-29] MEDS: DUONEB (A & A) INH SCH ×5 (04:52→19:57)
[2019-04-29] MEDS: PROTONIX PO SCH (06:12)
[2019-04-29] MEDS: LEVAQUIN PO SCH (08:45)
[2019-04-29] MEDS ORDERED: ALTACE PO SCH (09:00)
[2019-04-29] MEDS ORDERED: PEPCID PO SCH (09:00)
[2019-04-29] MEDS ORDERED: HYDROCHLOROTHIAZIDE 12.5 MG PO SCH (09:00)
[2019-04-29] MEDS ORDERED: TOPROL XL PO SCH (09:00)
[2019-04-29] MEDS ORDERED: FLOMAX PO SCH (09:00)
--- NOTE | 2019-04-29 09:19 | HISTORY AND PHYSICAL ---
CHIEF COMPLAINT: Shortness of breath. HISTORY OF PRESENT ILLNESS: Mr. Joe Lin is a 73-year-old male and has a history of hypertension, DVT, hyperlipidemia, gastroesophageal reflux, as well as BPH. He presented to the hospital because of shortness of breath. The patient gets dyspneic with slight activity. He denies any wheezing. No cough. No chest pain. No leg swelling. At the time of presentation, x- ray of the chest showed evidence of emphysema. His proBNP level was 175 and that troponin levels were noted to be less than 0.010. EKG showed evidence of sinus bradycardia with a left anterior fascicular block. The patient also notes that his blood pressure was elevated. At the time of arrival, his blood pressure was found to be 194/106. PAST MEDICAL HISTORY: DVT, hypertension, hyperlipidemia, gastroesophageal reflux disease, benign prostatic hypertrophy. SOCIAL HISTORY: No history of cigarette smoking, alcohol, or drug use. ALLERGIES: No known drug allergies. PAST SURGICAL HISTORY: The patient has had a cholecystectomy and also a colon resection as well as a hernia repair. FAMILY HISTORY: Positive for strokes as well as cancers. MEDICATIONS: Hydrochlorothiazide 12.5 mg once a day, pravastatin 40 mg p.o. at bedtime, warfarin 10 mg p.o. at bedtime, tamsulosin 0.4 mg p.o. daily, ramipril 5 mg p.o. daily, famotidine 20 mg p.o. daily, metoprolol 25 mg p.o. daily, pantoprazole 40 mg p.o. daily. REVIEW OF SYSTEMS: Constitutional: No fevers. [employer]: Has headaches. Eyes: Uses glasses. ENT: Has sinus problem, hearing loss. Cardiovascular: No chest pain. Respiratory: No cough. GI: Has some nausea. : No dysuria. Musculoskeletal: Has back pain. Dermatology: No skin lesions. Hematology: Patient is on chronic anticoagulation. Psychiatry: No anxiety or depression. PHYSICAL EXAMINATION: VITAL SIGNS: Temperature is 97.9 degrees, pulse 72, respiratory rate 20, blood pressure is 140/89, oxygen saturation is 98%. HEENT: Atraumatic and normocephalic. He is anicteric. Extraocular movements intact. No oral lesions noted. NECK: No lymphadenopathy or thyromegaly. CARDIOVASCULAR SYSTEM: S1, S2. RESPIRATORY SYSTEM: Has evidence of good air entry bilaterally. ABDOMEN: Soft, nontender. No masses felt. EXTREMITIES: No evidence of edema. CENTRAL NERVOUS SYSTEM: No obvious focal deficit noted. LABORATORY DATA: WBCs hematocrit is 41.4, with a platelet count of 197,000. INR is 2.99. Sodium is 138, potassium 4.0, chloride is 97, bicarb is 29, BUN is 18, creatinine is 1.4. Chest x- ray shows evidence of COPD. EKG shows sinus bradycardia with a left anterior fascicular block. ProBNP level is 175. ASSESSMENT AND PLAN: 1. Probable chronic obstructive pulmonary disease exacerbation. Maintain patient on nebulized bronchodilators as well as steroids. Follow up on patient's clinical progression. 2. Hypertension. Optimize blood pressure control using both parenteral as well as oral agents. 3. Acute kidney injury. Hydrate the patient using normal saline. Follow up on renal function. Avoid nephrotoxic agents. 4. History of deep venous thrombosis. Continue warfarin. Follow up on PT/INR. 5. Benign prostatic hypertrophy. Continue tamsulosin. 6. Hyperlipidemia. Continue pravastatin. 7. Gastroesophageal reflux disease. Continue proton pump inhibitor. cc: Blane Velazquez MD [facility]
--- NOTE | 2019-04-29 20:24 | PROGRESS NOTE ---
DATE: 04/29/2019 SUBJECTIVE: Mr. Lin is a 73-year-old who came in complaining of shortness of breath, but in retrospect it was more. He was concerned about his blood pressure. His concerned about his blood pressure. He has had been having some shortness of breath the last 3 or 4 days and he is he states that it seems like the bronchodilators are helping. This is a 73-year-old with a history of hypertension, DVT, hyperlipidemia, gastroesophageal reflux, as well as benign prostatic hypertrophy who presented hospital with shortness of breath. The patient gets dyspneic with a slight activity. He denies any wheezing. No cough. No chest pain. No leg swelling. Really no orthopnea or paroxysmal nocturnal dyspnea. At time of presentation, the chest x-ray showed some evidence of emphysema. His proBNP was 175. Troponin level was noted to be less than 0.0100. The story he told me, he was concerned. 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 PAST MEDICAL HISTORY: DVT, hypertension, hyperlipidemia, gastroesophageal reflux disease, benign prostatic hypertrophy. He has a distant history of smoking. PHYSICAL EXAMINATION: General: He is breathing better. He feels much more comfortable. Vital signs: Blood pressures have been 194/106, 152/82, 146/81. Remains afebrile. Temperature 98.4 degrees, pulse 85, respirations 18. HEENT: Pupils are equal and round. Neck: No distended neck veins. Lungs: Lungs are clear in all lung simmons. Cardiovascular: Regular rate without murmur or S3. Abdomen: Is soft. Skin: Is warm and dry. URINE OUTPUT: Was 1800 mL. ASSESSMENT AND PLAN: 1. Suspect he has some chronic obstructive pulmonary disease, and he does seem to be responding to steroids and bronchodilators. 2. He seemed to have some accelerated hypertension. Blood pressure seems to be pretty well controlled. He is on oral agents at home and we will continue those. I may go up on his ramipril and I think he could go home tomorrow. 3. Acute kidney injury. His renal function on arrival, creatinine was 1.4. Note that his troponins have all been less than 0.01. He is eating good and drinking good. 4. History of deep vein thrombosis. He is on Coumadin. ProTime looks therapeutic. 5. Benign prostatic hypertrophy. He is on tamsulosin already. 6. Hyperlipidemia. He is on pravastatin and then. 7. Gastroesophageal reflux disease. He is on a proton pump inhibitor, so I will put him back on his home medicines. I think that he is taking ramipril and we had increased that to think he was on 2.5, increased to 5 mg. He is taking, I think we have him on Toprol-XL 25 mg a day. I will see if we can get him some breathing treatments, so he can have them at home and maybe put him on a little steroid inhaler. Note that his ProTime was 32. I might check another 1 in the morning. May check some more electrolytes in the morning as well. His chest x-ray on arrival did show some emphysema. No sign of infiltrate or pleural effusion. cc: Jin Delarosa MD
[2019-04-29] MEDS ORDERED: PRAVACHOL PO SCH (21:00)
[2019-04-29] MEDS ORDERED: COUMADIN PO SCH (21:00)
[2019-04-30] MEDS: DUONEB (A & A) INH SCH ×3 (00:17→07:48)
[2019-04-30] MEDS: SOLU-MEDROL IV SCH ×2 (01:08→09:13)
[2019-04-30] MEDS: PROTONIX PO SCH (06:46)
[2019-04-30 07:21] VITALS: BP 129/83
[2019-04-30 07:21] LABS: CALCIUM 9.6 mg/dL (8.8-10.2); CREATININE 1.2 mg/dL (0.7-1.2); MAGNESIUM 2.1 mg/dL (1.5-2.7); POTASSIUM 3.9 mmol/L (3.5-5.1)
[2019-04-30] MEDS ORDERED: LOVENOX SUBQ SCH (09:00)
[2019-04-30] MEDS: LEVAQUIN PO SCH (09:13)
--- NOTE | 2019-04-30 09:55 | DISCHARGE SUMMARY ---
ADMISSION DATE: 04/28/2019 DISCHARGE DATE: PRIMARY CARE PHYSICIAN: Carlee Alvarez MD. HOSPITAL COURSE: This is a 73-year-old who presented on 04/28/2019 with shortness of breath and in actuality I think he presented also because they were concerned about his blood pressure. He had elevated blood pressure and was concerned, but in retrospect he has had a little shortness of breath for the last 3 days, seems to have a little more dyspnea with exertion. He has felt like the breathing treatments have helped him radiographically and clinically he looks like he has some COPD. Blood pressure seemed to come down nicely. We increased his ramipril from 2.5 to 5 mg daily, and saw no evidence of coronary ischemia. PAST MEDICAL HISTORY: DVT, hypertension, hyperlipidemia, gastroesophageal reflux disease, benign prostatic hypertrophy. SOCIAL HISTORY: No history of smoking, alcohol or drug use. ADMISSION DIAGNOSES: 1. Probable chronic obstructive pulmonary disease exacerbation, he seems to do well with his inhalers. I will put him on a combination of steroid and beta agonist inhaler, have him take Advair and him take 1 puff twice a day, actually I may try Symbicort which would be at 80 mcg and 2 puffs twice a day. 2. Accelerated hypertension, blood pressure has seemed to come down nicely. Kept him on his medications, last several blood pressures were 152/80 to 146/81, and 129/83, and he was eating well, bowels moving good. He has a history of benign prostatic hypertrophy, hyperlipidemia, gastroesophageal reflux disease. I felt he could go home on 04/30/2019. DISCHARGE MEDICATIONS: I will get him on Symbicort 80 mcg 2 puffs twice a day. 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 He will take his hydrochlorothiazide 12.5 mg a day, Toprol-XL 25 mg a day, Pravachol 40 mg a day, ramipril 5 mg a day, and Flomax 0.4 mg. His Coumadin he takes 10 mg a day, note his protime was 32. I think we probably ought to check another protime this morning. His electrolytes look good and we will get him ready to go home. cc: Jin Delarosa MD
[2019-04-30 10:39] LABS: INR 1.89; PROTIME 22.1 Seconds (11.0-16.0)
== END 2019-04-30 10:39 | disposition home or self-care (01) | DRG 191 ==
LOC: ED 16:26 → 4N 23:10 → SUATTDRO 23:10
PROVIDERS: ATTEND Internal Medicine